=== PATIENT | female | born 1970 | race Caucasian/White ===

== ENCOUNTER 2018-04-14 08:31 | Day surgery (SDC) | payer MEDICAID ==
[2018-04-10 11:00] LABS: ALBUMIN 3.6 g/dL (3.4-5.0); ALKALINE PHOSPHATASE 66 U/L (46-116); ALT/SGPT 39 U/L (14-59); AST/SGOT 25 U/L (15-37); BILIRUBIN TOTAL 0.34 mg/dL (0.20-1.00); CALCIUM 8.4 mg/dL (8.5-10.1); CARBON DIOXIDE 26.5 mmol/L (21-32); CHLORIDE SERUM 111 mmol/L (98-107); CREATININE SERUM 0.6 mg/dL (0.6-1.0); GFR1 > 60 mL/min; GLUCOSE SERUM 88 mg/dL (74-106); POTASSIUM SERUM 4.2 mmol/L (3.5-5.1); SODIUM SERUM 144 mmol/L (136-145); TOTAL PROTEIN, SERUM 7.5 g/dL (6.4-8.2)
[2018-04-10 13:16] LABS: BASOPHIL % 0.6 % (0-2); PLATELET COUNT 370 x10^3mcL (130-400)
[2018-04-10 13:34] LABS: RED CELL DISTRIBUTION WIDTH 18.6 % (11.5-14.5)
[~2018-04-14] VITALS: Ht 157.5 cm; Wt 64.4 kg
[2018-04-14 08:52] VITALS: BP 123/76
[2018-04-14 17:37] VITALS: BP 136/63
== END 2018-04-14 17:30 | disposition home or self-care (01) ==
LOC: DS 08:31 → NM 10:00 → OR 13:30 → DS 17:30
PROVIDERS: Surgery
PROC: 07B50ZX Excision of Right Axillary Lymphatic, Open Approach, Diagnostic (ICD-10-PCS; principal; 2018-04-14 13:30)
DX: C50.911 Malignant neoplasm of unspecified site of right female breast (principal); C77.3 Secondary and unspecified malignant neoplasm of axilla and upper limb lymph nodes; D64.9 Anemia, unspecified
CPT/HCPCS: J0690; J2405; J2704; J3010; J3490; J7030; J7120; Q9968